=== PATIENT | female | born 1955 | race Caucasian/White ===

== ENCOUNTER → 2016-10-18 | Outpatient (CLI) | payer BC ==
[2016-10-18 11:53] LABS: BASOPHILS # (AUTO) 0.07 10*3/UL; BASOPHILS % (AUTO) 1.4 % (0-1); EOSINOPHILS # (AUTO) 0.17 10*3/UL; EOSINOPHILS % (AUTO) 3.4 % (0-8); HEMATOCRIT 40.1 % (37.0-47.0); HEMOGLOBIN 13.8 g/dL (12.0-16.0); MEAN CORPUSCULAR HEMOGLOBIN 30.2 PG (27-31); MEAN CORPUSCULAR HGB CONC 34.4 g/dL (33-37); MEAN CORPUSCULAR VOLUME 87.7 FL (81-99); MEAN PLATELET VOLUME 9.7 FL (7.4-12.2); MONOCYTES # (AUTO) 1.35 10*3/UL (0.3-0.8); MONOCYTES % (AUTO) 27.3 % (5-15); NEUTROPHILS # (AUTO) 2.45 10*3/UL; NEUTROPHILS % (AUTO) 49.5 % (50-80); RED BLOOD COUNT 4.57 10^6/uL (4.20-5.40)
[2016-10-18 11:54] LABS: PLATELET MORPHOLOGY COMMENT NORMAL MORPHOLOGY (NORM); RBC MORPHOLOGY COMMENT NORMAL MORPHOLOGY (NORM); WBC MORPHOLOGY COMMENT NORMAL MORPHOLOGY (NORM)
[2016-10-18 12:03] LABS: BLOOD UREA NITROGEN 22 mg/dL (7-22); BUN/CREATININE RATIO 24.44 (6-20); CALCIUM 8.5 mg/dL (8.7-10.7); EST GLOMERULAR FILTRATION > 60 (>60 ml/min/1.73m(2)); MAGNESIUM 2.2 mg/dL (1.6-2.4); SERUM ALBUMIN 3.6 g/dL (3.5-4.8)
[2016-10-22 07:51] LABS: PARASITIC EXAM FIN 1617 (())
== END ==
LOC: MOB LAB 10:17
PROVIDERS: ATTEND Physician Assistant Medical
DX: R10.84 Generalized abdominal pain (principal); R19.7 Diarrhea, unspecified; R11.0 Nausea; G25.81 Restless legs syndrome; R51 Headache
CPT/HCPCS: 36415; 80053; 82728; 83735; 85025; 87046; 87177; 87205; 87209; 87328; 87329; 87493

== ENCOUNTER → 2016-10-21 | Outpatient (CLI) | payer BC | LOC: MOB LAB 18:47 | PROVIDERS: ATTEND Physician Assistant | DX: R82.99 Other abnormal findings in urine (principal) | CPT/HCPCS: 87088 ==

== ENCOUNTER → 2016-11-07 | Outpatient (CLI) | payer BC ==
[2016-11-07 09:55] LABS: HEMATOCRIT 43.6 % (37.0-47.0); HEMOGLOBIN 15.2 g/dL (12.0-16.0); MEAN CORPUSCULAR HEMOGLOBIN 30.6 PG (27-31); MEAN CORPUSCULAR HGB CONC 34.9 g/dL (33-37); MEAN CORPUSCULAR VOLUME 87.7 FL (81-99); MONOCYTES % (AUTO) 11.8 % (5-15); NEUTROPHILS % (AUTO) 83.7 % (50-80); RED BLOOD COUNT 4.97 10^6/uL (4.20-5.40)
[2016-11-07 09:56] LABS: BASOPHILS # (AUTO) 0.03 10*3/UL; BASOPHILS % (AUTO) 0.2 % (0-1); EOSINOPHILS # (AUTO) 0 10*3/UL; EOSINOPHILS % (AUTO) 0 % (0-8); LYMPHOCYTES # (AUTO) 0.62 10*3/uL; MONOCYTES # (AUTO) 1.89 10*3/UL (0.3-0.8); NEUTROPHILS # (AUTO) 13.39 10*3/UL; PLATELET MORPHOLOGY COMMENT NORMAL MORPHOLOGY (NORM); RBC MORPHOLOGY COMMENT NORMAL MORPHOLOGY (NORM); WBC MORPHOLOGY COMMENT NORMAL MORPHOLOGY (NORM)
[2016-11-07 09:57] LABS: BLOOD UREA NITROGEN 11 mg/dL (7-22); BUN/CREATININE RATIO 13.75 (6-20); CALCIUM 9.2 mg/dL (8.7-10.7); EST GLOMERULAR FILTRATION > 60 (>60 ml/min/1.73m(2))
== END ==
LOC: MOB LAB 08:59
DX: R19.7 Diarrhea, unspecified (principal); R51 Headache; R11.0 Nausea; Z86.19 Personal history of other infectious and parasitic diseases
CPT/HCPCS: 36415; 80048; 85025; 87046; 87088

== ENCOUNTER → 2016-11-28 | Outpatient (CLI) | payer BC | LOC: LAB 10:43 | PROVIDERS: ATTEND Internal Medicine | DX: A04.7 Enterocolitis due to Clostridium difficile (principal) | CPT/HCPCS: 87493 ==